=== PATIENT | male | born 2000 | race Two or more races ===

== ENCOUNTER 2023-08-19 00:09 | Emergency (ER) | payer OTHER, SELFPAY ==
[2023-08-19 00:15] VITALS: BP 121/76; PULSE 69; TEMP 36.6; O2SAT 100; BMI 22.7
--- NOTE | 2023-08-19 00:43 | ED_ITS ---
HPI - Abdominal Pain General Chief Complaint: Abdominal Pain Stated Complaint: vomiting Time Seen by Provider: 08/19/23 00:37 Source: patient Mode of arrival: walk-in Limitations: no limitations History of Present Illness HPI narrative: presents complaining of recurrent vomiting for past 3-4 days. States diarrhea on and off for past 3 months. occ blood per rectum. Presents now because of the recurrent vomiting and abdominal pain. Concerned it may be his gallbladder but no known history of gallstones. Related Data Home Medications ?Medication ?Instructions ?Recorded ?Confirmed aripiprazole 5 mg tablet (Abilify) 5 mg PO DAILY 08/19/23 08/19/23 buspirone 15 mg tablet 15 mg PO DAILY 08/19/23 08/19/23 dextromethorphan IR 45 1 tab PO DAILY 08/19/23 08/19/23 mg-bupropion ER 105 mg biphasic tablet (Auvelity) meclizine 25 mg tablet 12.5 mg PO DAILY 08/19/23 08/19/23 Allergies Allergy/AdvReac Type Severity Reaction Status Date / Time No Known Drug Allergies Allergy Verified 08/19/23 00:15 Review of Systems ROS Status of ROS 10 or more systems reviewed and unremark able except as noted in history and below Exam Constitutional Vital Signs, click to edit/add: Last Vital Signs Temp 98 F 08/19/23 00:15 Pulse 69 08/19/23 00:15 Resp 18 08/19/23 00:15 BP 121/76 08/19/23 00:15 Pulse Ox 100 08/19/23 00:15 O2 Del Method Room Air 08/19/23 00:15 Common normals: no apparent distress, average body habitus, oriented x3, no limitations, healthy appearing, alert and well nourished [facility] Common normals: normocephalic and head/scalp atraumatic Eye Common normals: PERRL and EOMs intact bilaterally Respiratory Common normals: normal respiratory effort, no retractions, no use of accessory muscles and clear to auscultation bilaterally Cardio Common normals: regular rate, regular rhythm, S1 normal heart sound and S2 normal heart sound GI Other: mild gen. nonspecific tenderness Other: rectal empty vault Extremity Common normals: normal to inspection and full ROM Neuro Common normals: oriented x3, CN's II-XII intact bilaterally, moves all extremities and no focal motor deficits Psych Appearance: grossly normal Course Vital Signs Vital signs: Vital Signs Temperature 98 F 08/19/23 00:15 Pulse Rate 69 08/19/23 00:15 Respiratory Rate 18 08/19/23 00:15 Blood Pressure 121/76 08/19/23 00:15 Pulse Oximetry 100 08/19/23 00:15 Oxygen Delivery Method Room Air 08/19/23 00:15 Temperature 98 F 08/19/23 00:15 Pulse Rate 69 08/19/23 00:15 Respiratory Rate 18 08/19/23 00:15 Blood Pressure 121/76 08/19/23 00:15 Pulse Oximetry 100 08/19/23 00:15 Oxygen Delivery Method Room Air 08/19/23 00:15 MDM - Abdominal Pain MDM Narrative Medical decision making narrative: patient presents complaining of rectal bleeding for past 3 months. rectal exam neg for blood and Hgb 13.9 patient states the main reason he came in was for recurrent vomiting for 3 days. No emesis here. abdomen with mild gen. nonspecific tenderness. Labs unremarkable except UA with sp. gr 1030. Patient hydrated with normal saline. CT abd/pelvis without acute changes. Patient remained stable during his time in the department and discharged home with a prescription for phenergan. Lab Data Labs: Lab Results 08/19/23 08/19/23 08/19/23 Range/Units 00:25 00:48 01:05 WBC 8.0 (4.0-11.0) 10^3/uL RBC 4.54 L (4.70-6.10) 10^6/uL Hgb 13.9 L (14.0-18.0) g/dL Hct 42.1 (42.0-54.0) % MCV 92.7 (80.0-94.0) fL MCH 30.6 (25.9-34.0) pg MCHC 33.0 (29.9-35.2) g/dL RDW 13.0 (11.0-15.0) % Plt Count 195 (150-450) 10^3/uL MPV 9.5 (9.5-13.5) fL Neut % (Auto) 56.8 (43.0-75.0) % Lymph % (Auto) 35.0 (20.5-60.0) % [place] % (Auto) 5.6 (1.7-12.0) % Eos % (Auto) 2.1 (0.9-7.0) % Baso % (Auto) 0.4 (0.2-2.0) % Neut # (Auto) 4.5 (1.4-6.5) 10^3/uL Lymph # (Auto) 2.8 (1.2-3.8) 10^3/uL [place] # (Auto) 0.5 (0.3-0.8) 10^3/uL Eos # (Auto) 0.2 (0.0-0.7) 10^3/uL Baso # (Auto) 0.0 (0.0-0.1) 10^3/uL Abs Immat Gran (auto) 0.01 (0.00-0.03) 10^3/uL Imm/Tot Granulo (auto) 0.1 (0.0-0.5) % Sodium 142 (136-145) mmol/L Potassium 3.3 L (3.5-5.1) mmol/L Chloride 105 (98-107) mmol/L Carbon Dioxide 29.4 (21.0-32.0) mmol/L Anion Gap 10.9 BUN 16.0 (7.0-18.0) mg/dL Creatinine 0.78 (0.70-1.30) mg/dL Est GFR ( Amer) >60 (>=60) Est GFR (Non-Af Amer) >60 (>=60) BUN/Creatinine Ratio 20.5 Glucose 92 (74-106) mg/dL Lactate 0.6 (0.4-2.0) mmol/L Calcium 9.0 (8.5-10.1) mg/dL Total Bilirubin 0.4 (0.2-1.0) mg/dL AST 12 L (15-37) U/L ALT 16 (16-63) U/L Alkaline Phosphatase 109 (46-116) U/L Total Protein 7.3 (6.4-8.2) g/dL Albumin 3.7 (3.4-5.0) g/dL Globulin 3.6 g/dL Albumin/Globulin Ratio 1.0 Lipase 23.0 (16.0-77.0) U/L Urine Color Yellow (YELLOW) Urine Clarity Clear (CLEAR) Urine pH 6.0 (5.0-9.0) Ur Specific [place] >=1.030 A (1.005-1.025) Urine Protein Negative (NEG/TRACE) mg/dL Urine Glucose (UA) Negative (NEGATIVE) mg/dL Urine Ketones Negative (NEGATIVE) mg/dL Urine Occult Blood Small A (NEGATIVE) Urine Nitrite Negative (NEGATIVE) Urine Bilirubin Negative (NEGATIVE) Urine Urobilinogen 1.0 (0.2-1.0) EU/dL Ur Leukocyte Esterase Negative (NEGATIVE) Urine RBC 0-2 (0-2) #/HPF Urine WBC None seen (NONE SEEN) #/HPF Ur Squamous Epith Cells None seen (NONE/RARE) #/LPF Urine Crystals None seen (None Seen) #/HPF Urine Bacteria None seen (NONE SEEN) #/HPF Urine Casts None seen (NONE SEEN) #/LPF Urine Mucus Small A (NONE SEEN) Ur Culture Indicated? No Stool Occult Blood Negative Discharge Plan Discharge Stand Alone Forms: Portal Instructions Chief Complaint: Abdominal Pain Clinical Impression: Dehydration, Vomiting Patient Disposition: Home, Self-Care Prescriptions / Home Meds: No Action aripiprazole [Abilify] 5 mg tablet 5 mg PO DAILY Auvelity 45-105 mg tablet, IR and ER, biphasic 1 tab PO DAILY buspirone 15 mg tablet 15 mg PO DAILY meclizine 25 mg tablet 12.5 mg PO DAILY Print Language: Icelandic Referrals: Nurys Zuluaga DO [Primary Care Provider] - 1 week
--- NOTE | 2023-08-19 00:50 | CT_ITS ---
The [address] [address] Patient Name: MONTSERRAT PEPPER MRN: [id number] date: 2000 Sex: M Assigned Patient Location: ER Current Patient Location: ER Accession/Order Number: [id number] Exam Date: 08/19/2023 01:12 Report Date: 08/19/2023 02:43 At the request of: MATTHEW GÓMEZ Procedure: CT abdomen pelvis w con CT OF THE ABDOMEN AND PELVIS WITH CONTRAST: 08/19/2023 1:12 AM EDT CLINICAL HISTORY: 23-year-old male. Abdominal pain x3 days. Lower pain with diarrhea and vomiting. COMPARISONS: None. TECHNIQUE: Thin section axial CT images were obtained from the lung bases to the pubis symphysis. This CT exam was performed using one or more of the following dose reduction techniques: Automated exposure control, adjustment of the mA and/or kV according to patient size, or use of iterative reconstruction technique. Thin section coronal and sagittal images were reconstructed from the axial data set. All images were reviewed and interpreted. CONTRAST: 98 mL Omnipaque 300 IV. FINDINGS: LUNG BASES: No consolidation or pleural fluid. LIVER: Normal. GALLBLADDER: Normal. BILIARY TREE: No ductal dilatation. PANCREAS: Normal. SPLEEN: Normal. ADRENALS: Normal. KIDNEYS: Normal, without urolithiasis or hydronephrosis. URINARY BLADDER: Grossly unremarkable. PELVIC STRUCTURES: Unremarkable. BOWEL: No evidence of obstruction, gross mass, or inflammatory change. There is no significant diverticulosis. There is no evidence of diverticulitis. APPENDIX: The appendix is not clearly identified and there are no secondary findings to suggest acute appendicitis. LYMPH NODES: No pathologically enlarged lymph nodes identified. PERITONEUM: No intraperitoneal free air. No free intraperitoneal fluid. MESENTERY: Unremarkable. RETROPERITONEUM: The retroperitoneum is unremarkable. AORTA: Normal in caliber. BODY WALL: No body wall mass. OSSEOUS STRUCTURES: No destructive osseous lesion or displaced fracture. CT/CT abdomen pelvis w con IMPRESSION: 1. Unremarkable exam with no acute or specific findings to explain symptomatology. This report should be interpreted in the context of clinical information including patient symptoms and available laboratory findings. Follow-up imaging or other interventions may be appropriate, if indicated by your clinical impression. Electronically authenticated by: TED CARROLL Date: 08/19/2023 02:43
[2023-08-19 00:55] LABS: Bilirubin Urine NEGATIVE (NEGATIVE); Blood Urine SMALL (NEGATIVE); Clarity Urine CLEAR (CLEAR); Color Urine YELLOW (YELLOW); Glucose Urine UA NEGATIVE (NEGATIVE); Ketones Urine NEGATIVE (NEGATIVE); Leukocyte Esterase Urine NEGATIVE (NEGATIVE); Nitrite Urine NEGATIVE (NEGATIVE); Protein Urine NEGATIVE (NEG/TRACE); Specific Gravity Urine >=1.030 (1.005-1.025)
[2023-08-19 00:56] LABS: Urine Microscopic Indicated YES
[2023-08-19 01:00] LABS: RBC Urine 0-2 #/HPF (0-2); WBC Urine NONE SEEN #/HPF (NONE SEEN)
[2023-08-19] MEDS: 0.9 % SODIUM CHLORIDE 1,000 ML 999 ML IV (01:00)
[2023-08-19 01:01] LABS: Internal Control Within Normal Limits; Occult Blood Negative
[2023-08-19 01:01] LABS: Bacteria Urine NONE SEEN #/HPF (NONE SEEN); Cast Seen? NONE SEEN #/LPF (NONE SEEN); Crystals Seen? None Seen #/HPF (None Seen); Mucus Urine SMALL (NONE SEEN); Squamous Epithelial Cell Urine NONE SEEN #/LPF (NONE/RARE); Urine Culture Indicated NO
[2023-08-19 01:14] LABS: Basophils Percent Auto 0.4 % (0.2-2.0); Eosinophils Absolute Auto 0.2 10^3/uL (0.0-0.7); Eosinophils Percent Auto 2.1 % (0.9-7.0); Hematocrit 42.1 % (42.0-54.0); Hemoglobin 13.9 g/dL (14.0-18.0); Immature Granulocytes Abs Auto 0.01 10^3/uL (0.00-0.03); Immature Granulocytes Pct Auto 0.1 % (0.0-0.5); Lymphocytes Absolute Auto 2.8 10^3/uL (1.2-3.8); Mean Corpuscular Hemoglobin 30.6 pg (25.9-34.0); Mean Corpuscular Volume 92.7 fL (80.0-94.0); Mean Platelet Volume 9.5 fL (9.5-13.5); Monocytes Absolute Auto 0.5 10^3/uL (0.3-0.8); Monocytes Percent Auto 5.6 % (1.7-12.0); Neutrophils Absolute Auto 4.5 10^3/uL (1.4-6.5); Neutrophils Percent Auto 56.8 % (43.0-75.0); Platelet Count 195 10^3/uL (150-450); Red Blood Count 4.54 10^6/uL (4.70-6.10)
[2023-08-19 01:29] LABS: Alanine Aminotransferase 16 U/L (16-63); Albumin Level 3.7 g/dL (3.4-5.0); Alkaline Phosphatase 109 U/L (46-116); Anion Gap 10.9; Aspartate Amino Transferase 12 U/L (15-37); BUN Creatinine Ratio 20.5; Bilirubin Total 0.4 mg/dL (0.2-1.0); Carbon Dioxide 29.4 mmol/L (21.0-32.0); Chloride 105 mmol/L (98-107); Estimated GFR (African America >60 (>=60); Estimated GFR (Non-African Ame >60 (>=60); Globulin 3.6 g/dL; Glucose 92 mg/dL (74-106); Potassium 3.3 mmol/L (3.5-5.1); Sodium 142 mmol/L (136-145); Total Protein 7.3 g/dL (6.4-8.2)
[2023-08-19 01:40] LABS: Lactate/Lactic Acid 0.6 mmol/L (0.4-2.0)
== END 2023-08-19 03:15 | disposition home or self-care (01) ==
PROVIDERS: Emergency Provider Internal Medicine; PCP Family Medicine
DX: E86.0 Dehydration (principal); R11.10 Vomiting, unspecified; K62.5 Hemorrhage of anus and rectum
CPT/HCPCS: 36415; 74177; 80053; 81001; 83605; 83690; 85025; 96360; 99285; G0328; Q9967